=== PATIENT | male | born 2000 | race Caucasian/White ===

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

== ENCOUNTER 2018-10-17 16:00 | Emergency (ER) | payer SELFPAY ==
[~2018-10-17] VITALS: Ht 182.9 cm; Wt 90.0 kg
[~2018-10-17 16:00] MED LIST: PERCOCET 5/325M1 TAB PO; ULTRAM50 M1 PO
[2018-10-17] MEDS ORDERED: ZITHROMAX500 MG PO (17:02)
[2018-10-17] MEDS ORDERED: BACTROBAN TOP (17:02)
[2018-10-17 17:20] VITALS: BP 118/77
== END 2018-10-17 17:20 | disposition home or self-care (01) | DRG 153 ==
LOC: ED 16:00
DX: J02.9 Acute pharyngitis, unspecified (principal); R21 Rash and other nonspecific skin eruption; R09.81 Nasal congestion